=== PATIENT | female | born 1950 | race Caucasian/White ===

== ENCOUNTER 2017-11-14 08:39 | Day surgery (SDC) ==
[2017-11-14] MEDS: BETADINE OPTH PREP OP PRN ×2 (10:00→10:24)
[2017-11-14] MEDS: TETRACAINE 0.5% UNIT-DOSE OP PRN ×2 (10:00→10:24)
[2017-11-14] MEDS: CYCLOGYL 2% OPTH OP PRN ×3 (10:01→10:11)
[2017-11-14] MEDS ORDERED: DEX-MOXI-KETOR OPTH INJ 1/0.5/0.4 MG/ML IO ONE (10:12)
[2017-11-14] MEDS ORDERED: LIDOCAINE 1%/PHENYLEPHRINE 1.5% BSS (SURGERY) INTRAOCULA ONE (10:12)
[2017-11-14] MEDS ORDERED: BRIMONIDINE TARTRATE 0.2% OPTH SOL OP PRN (10:12)
[2017-11-14] MEDS ORDERED: BSS WITH EPINEPHRINE OP ONE (10:12)
[2017-11-14] MEDS ORDERED: ZOFRAN 4 MG/2 ML IVP ONE (10:12)
[2017-11-14] MEDS ORDERED: LIDOCAINE 1% 20 ML MDV ID STA (10:12)
[2017-11-14 10:20] VITALS: TEMP 97
[2017-11-14] MEDS ORDERED: VERSED ONE (10:40)
[2017-11-14] MEDS ORDERED: DIPRIVAN 20 ML VIAL IVP ONE (10:40)
[2017-11-14] MEDS ORDERED: SUBLIMAZE ONE (10:40)
[2017-11-16 11:18] VITALS: BP 123/56
== END 2017-11-14 11:35 | disposition home or self-care (01) ==
LOC: SURG 08:39
PROVIDERS: ATTEND Ophthalmology
DX: H25.813 Combined forms of age-related cataract, bilateral (principal)

== ENCOUNTER 2017-11-28 08:43 | Day surgery (SDC) ==
[2017-11-28] MEDS: BETADINE OPTH PREP OP PRN ×2 (10:10→10:38)
[2017-11-28] MEDS: TETRACAINE 0.5% UNIT-DOSE OP PRN ×2 (10:10→10:38)
[2017-11-28] MEDS: CYCLOGYL 2% OPTH OP PRN ×3 (10:11→10:21)
[2017-11-28] MEDS ORDERED: LIDOCAINE 1% 20 ML MDV ID STA (10:19)
[2017-11-28] MEDS ORDERED: LIDOCAINE 1%/PHENYLEPHRINE 1.5% BSS (SURGERY) INTRAOCULA ONE (10:19)
[2017-11-28] MEDS ORDERED: BRIMONIDINE TARTRATE 0.2% OPTH SOL OP PRN (10:19)
[2017-11-28] MEDS ORDERED: BSS WITH EPINEPHRINE OP ONE (10:19)
[2017-11-28] MEDS ORDERED: ZOFRAN 4 MG/2 ML IVP ONE (10:19)
[2017-11-28] MEDS ORDERED: DEX-MOXI-KETOR OPTH INJ 1/0.5/0.4 MG/ML IO ONE (10:19)
[2017-11-28] MEDS ORDERED: SUBLIMAZE ONE (11:00)
[2017-11-28] MEDS ORDERED: VERSED ONE (11:00)
[2017-11-28 16:42] VITALS: TEMP 97.4
[2017-11-30 13:52] VITALS: BP 128/67
== END 2017-11-28 11:45 | disposition home or self-care (01) ==
LOC: SURG 08:43
PROVIDERS: ATTEND Ophthalmology
DX: H25.813 Combined forms of age-related cataract, bilateral (principal)